=== PATIENT | female | born 1945 | race Caucasian/White ===

== ENCOUNTER 2017-02-05 11:30 | Emergency (ER) | payer OTHER ==
[2017-02-05 11:33] VITALS: BMI 30.2
[2017-02-05 11:43] VITALS: TEMP 97.6
[2017-02-05] MEDS ORDERED: Sodium Chloride 0.9% 500 ML IV STA (11:48)
--- NOTE | 2017-02-05 11:52 | ED PDOC ---
Arrival/HPI - General Chief Complaint: Female Genitourinary Time Seen by Provider: 02/05/17 11:35 Historian: Family (Daughter) - History of Present Illness Narrative History of Present Illness (Text): 02/05/17 11:49 A 71 year old female, whose past medical history includes asthma, Parkinson's disease and complete hysterectomy, presents to the emergency department complaining of left sided pelvic/abdominal pain for 2 days. History obtained through daughter who translated for patient. Patient denies any fever, chills, nausea, vomiting, diarrhea, urinary symptoms, vaginal bleeding, vaginal discharge, hematochezia, chest pain, shortness of breath or any other complaints. PMD: Dr. Gladys Mar Time/Duration: Other (2 days) Symptom Course: Unchanged Quality: Other Context: Home Past Medical History - Provider Review Nursing Documentation Reviewed: Yes - Infectious Disease Hx of Infectious Diseases: None - Cardiac Hx Cardiac Disorders: Yes Hx Hypertension: Yes - Pulmonary Hx Respiratory Disorders: Yes Hx Asthma: Yes - Neurological Hx Neurological Disorder: Yes Hx Parkinson's Disease: Yes - HEENT Hx HEENT Disorder: No - Renal Hx Renal Disorder: No - Endocrine/Metabolic Hx Endocrine Disorders: No - Hematological/Oncological Hx Blood Disorders: No - Integumentary Hx Dermatological Disorder: No - Musculoskeletal/Rheumatological Hx Musculoskeletal Disorders: Yes Hx Unsteady Gait: Yes - Gastrointestinal Hx Gastrointestinal Disorders: No - Genitourinary/Gynecological Hx Genitourinary Disorders: No - Psychiatric Hx Psychophysiologic Disorder: No Hx Substance Use: No - Surgical History Hx Hysterectomy: Yes - Anesthesia Hx Anesthesia: Yes Hx Anesthesia Reactions: No Family/Social History - Physician Review Nursing Documentation Reviewed: Yes Family/Social History: No Known Family HX Smoking Status: Never Smoked Hx Alcohol Use: No Hx Substance Use: No Allergies/Home Meds Allergies/Adverse Reactions: Allergies No Known Allergies Allergy (Verified 02/05/17 11:32) Home Medications: Home Meds Medication Instructions Recorded Confirmed Bisoprolol Fumarate [Bisoprolol 2.5 mg PO DAILY 02/05/17 02/05/17 Fumarate] Fluticasone/Salmeterol 250/50 1 puff IH DAILY 02/05/17 02/05/17 [Advair Diskus 250/50] Montelukast [Singulair] 10 mg PO HS 12/29/17 12/29/17 Pramipexole Di-HCl [Pramipexole 1 tab PO DAILY 02/05/17 02/05/17 Dihydrochloride] clonazePAM [Klonopin] 0.5 mg PO HS 02/05/17 02/05/17 Review of Systems - Physician Review All systems were reviewed & negative as marked: Yes - Review of Systems Constitutional: absent: Fevers, Night Sweats Respiratory: absent: SOB Cardiovascular: absent: Chest Pain Gastrointestinal: Other (Left sided pelvic pain). absent: Diarrhea, Nausea, Vomiting, Hematochezia Genitourinary Female: absent: Dysuria, Frequency, Hematuria, Urine Output Changes, Vaginal Bleeding, Vaginal Discharge Physical Exam Vital Signs Reviewed: Yes Vital Signs Temp Pulse Resp BP Pulse Ox 02/05/17 13:08 75 17 121/80 98 02/05/17 11:42 97.6 F 02/05/17 11:38 78 18 117/76 100 Temperature: Afebrile Blood Pressure: Normal Pulse: Regular Respiratory Rate: Normal Appearance: Positive for: Well-Appearing, Non-Toxic, Comfortable Pain Distress: None Mental Status: Positive for: Alert and Oriented X 3 - Systems Exam Head: Present: Atraumatic, Normocephalic Pupils: Present: PERRL Extroacular Muscles: Present: EOMI Conjunctiva: Present: Normal Mouth: Present: Moist Mucous Membranes Neck: Present: Normal Range of Motion Respiratory/Chest: Present: Clear to Auscultation, Good Air Exchange. No: Respiratory Distress, Accessory Muscle Use Cardiovascular: Present: Regular Rate and Rhythm, Normal S1, S2. No: Murmurs Abdomen: Present: Tenderness (LLQ tenderness to palpation), Normal Bowel Sounds. No: Distention, Peritoneal Signs Back: Present: Normal Inspection Upper Extremity: Present: Normal Inspection. No: Cyanosis, Edema Lower Extremity: Present: Normal Inspection. No: Edema Neurological: Present: GCS=15, CN II-XII Intact, Speech Normal Skin: Present: Warm, Dry, Normal Color. No: Rashes Psychiatric: Present: Alert, Oriented x 3, Normal Insight, Normal Concentration Medical Decision Making ED Course and Treatment: 02/05/17 11:49 Impression: A 71 year old female with left sided pelvic pain Plan: -- Abdominal CT -- Labs -- Urine culture and Urinalysis -- Tylenol and IV fluids -- Reassess and disposition Progress Notes: Report Date : 02/05/2017 13:27:46 PROCEDURE: CT Abdomen and Pelvis with contrast Dictator : Moshe Gooden MD IMPRESSION: Unremarkable contrast enhanced CT of the abdomen and pelvis. 02/05/17 13:33 pt reassesed: states pain improved. ct labs unremarkable. h/o of total hysterctomy. pt states feels well for dc return precautions advsed - Lab Interpretations Lab Results: 02/05/17 12:00 02/05/17 12:00 Lab Results 02/05/17 12:00: Sodium 141, Potassium 3.5 L, Chloride 102, Carbon Dioxide 26, Anion Gap 17, BUN 13, Creatinine 0.6 L, Est GFR ( Amer) > 60, Est GFR ( Non-Af Amer) > 60, Random Glucose 131 H, Calcium 9.7, Total Bilirubin 0.4, AST 26, ALT 30, Alkaline Phosphatase 112, Total Protein 8.8 H, Albumin 4.4, Globulin 4.4, Albumin/Globulin Ratio 1.0 L, Lipase 141 02/05/17 12:00: Urine Color Yellow, Urine Appearance Clear, Urine pH 6.0, Ur Specific [place] 1.015, Urine Protein Negative, Urine Glucose (UA) Negative, Urine Ketones Negative, Urine Blood Small H, Urine Nitrate Negative, Urine Bilirubin Negative, Urine Urobilinogen 0.2, Ur Leukocyte Esterase Trace H, Urine RBC 5 - 10, Urine WBC 2 - 5, Ur Epithelial Cells 6 - 8, Amorphous Sediment Few, Urine Bacteria Many, Urine Other Uyeast 02/05/17 12:00: PT 12.3, INR 1.12 H, APTT 30.1 02/05/17 12:00: WBC 8.6, RBC 4.15, Hgb 12.4, Hct 36.4, MCV 87.7, MCH 29.9, MCHC 34.1, RDW 13.0, Plt Count 376, MPV 8.4, Gran % 59.7, Lymph % (Auto) 32.2, [place] % (Auto) 4.3, Eos % (Auto) 3.6, Baso % (Auto) 0.2, Gran # 5.12, Lymph # 2.8, [place] # 0.4, Eos # 0.3, Baso # 0.02 I have reviewed the lab results: Yes - RAD Interpretation Radiology Orders: 02/05/17 12:28 ABD & PELVIS IV CONTRAST ONLY [CT] Stat - Medication Orders Current Medication Orders: Discontinued Medications Acetaminophen (Tylenol 325mg Tab) 975 mg PO STAT STA Stop: 02/05/17 11:49 Last Admin: 02/05/17 12:06 Dose: 975 mg MAR Pain/Vitals Document 02/05/17 12:06 MS (Rec: 02/05/17 12:08 MS [id number]) Pain Reassessment Is This A Pain ReAssessment? No Sleep Is patient sleeping during reassessment? No Presence of Pain Presence of Pain Yes Pain Scale Used Pain Scale Used Numeric Location Upper or Lower Lower Pain Location Body Site Abdomen Description Intermittent Intensity 6 Scale Used Numeric Pain Behavior Moaning Guarding Facial Grimacing Sodium Chloride (Sodium Chloride 0.9%) 500 mls @ 999 mls/hr IV .Q31M STA Stop: 02/05/17 12:18 Last Admin: 02/05/17 12:08 Dose: 999 mls/hr eMAR Start Stop Document 02/05/17 12:08 MS (Rec: 02/05/17 12:08 MS [id number]) Intravenous Solution Start Date 02/05/17 Start Time 12:08 End Date 02/05/17 End time 13:08 Total Infusion Time 60 - Scribe Statement The provider has reviewed the documentation as recorded by the Scott Joel Provider Scribe Attestation: All medical record entries made by the Scribe were at my direction and personally dictated by me. I have reviewed the chart and agree that the record accurately reflects my personal performance of the history, physical exam, medical decision making, and the department course for this patient. I have also personally directed, reviewed, and agree with the discharge instructions and disposition. Disposition/Present on Arrival - Present on Arrival Any Indicators Present on Arrival: No History of DVT/PE: No History of Uncontrolled Diabetes: No Urinary Catheter: No History of Decub. Ulcer: No History Surgical Site Infection Following: None - Disposition Have Diagnosis and Disposition been Completed?: Yes Diagnosis: Abdominal pain Disposition: HOME/ ROUTINE Disposition Time: 13:34 Patient Problems: Current Active Problems Problem Status Onset Abdominal pain Acute Condition: STABLE Discharge Instructions (ExitCare): Acute Abdominal Pain (ED), Pelvic Pain (ED) Additional Instructions: please follow up with your doctor/specialist. you may need further diagnostic testing. return to er with any worsening symptoms or concerns. Referrals: Kimmy Mar MD [Primary Care Provider] - Follow up with primary Guy Melendez DO [Staff Provider] - Follow up with primary Francisco Harris MD [Staff Provider] - Follow up with primary [facility] [place] [Outside] - Follow up with primary [facility] [Outside] - Follow up with primary Forms: [employer] (Chinese)
[2017-02-05 12:18] LABS: BASO # 0.02 K/mm3 (0.0-2.0); BASO % 0.2 % (0.0-3.0); EOS # 0.3 (0.0-0.7); EOS % 3.6 % (1.5-5.0); GRAN # 5.12 (1.4-6.5); GRAN % 59.7 % (50.0-68.0); HEMOGLOBIN 12.4 g/dL (12.0-16.0); LYMPH # 2.8 (1.2-3.4); LYMPH % 32.2 % (22.0-35.0); MEAN CELL VOLUME 87.7 fl (80.0-105.0); MEAN CORPUSCULAR HEMOGLOBIN 29.9 pg (25.0-35.0); MEAN CORPUSCULAR HGB CONC 34.1 g/dl (31.0-37.0); MEAN PLATELET VOLUME 8.4 fl (7.0-11.0); MONO # 0.4 (0.1-0.6); MONO % 4.3 % (1.0-6.0); RBC 4.15 10^6/uL (3.5-6.1); WHITE BLOOD COUNT 8.6 10^3/ul (4.5-11.0)
[2017-02-05 12:24] LABS: URINE BILIRUBIN NEGATIVE (NEGATIVE); URINE BLOOD SMALL (NEGATIVE); URINE GLUCOSE (UA) NEGATIVE (NEGATIVE); URINE LEUKOCYTE ESTERASE TRACE Leu/uL (NEGATIVE); URINE NITRATE NEGATIVE (NEGATIVE); URINE PROTEIN NEGATIVE mg/dL (<30 mg/dL); URINE UROBILINOGEN 0.2 E.U./dL (<1 E.U./dL)
[2017-02-05 12:27] LABS: ALBUMIN 4.4 g/dL (3.0-4.8); ALT/SGPT 30 U/L (7-56); AST/SGOT 26 U/L (14-36); BLOOD UREA NITROGEN 13 mg/dL (7-21); CALCIUM 9.7 mg/dL (8.4-10.5); GFR AFRICAN-AMERICAN > 60; GFR NON-AFRICAN AMERICAN > 60; LIPASE 141 U/L (23-300)
[2017-02-05 12:28] LABS: URINE APPEARANCE CLEAR (CLEAR); URINE COLOR YELLOW (YELLOW)
[2017-02-05] MEDS ORDERED: Iohexol 350 MG/100 ML VIAL ONE (12:32)
[2017-02-05 12:42] LABS: INR 1.12 (0.93-1.08); PARTIAL THROMBOPLASTIN TIME 30.1 Seconds (25.1-36.5); PROTHROMBIN TIME 12.3 SECONDS (9.4-12.5)
[2017-02-05 12:48] LABS: URINE AMORPHOUS SEDIMENT FEW; URINE BACTERIA MANY (NEG)
[2017-02-05 13:21] VITALS: BP 121/80; PULSE 75; RESP 17; O2SAT 98
--- NOTE | 2017-02-05 13:29 | CT ---
PROCEDURE: CT Abdomen and Pelvis with contrast HISTORY: llq pain COMPARISON: None. TECHNIQUE: Contrast dose: 100 cc of Omni 350 Radiation dose: Total exam DLP = 418 mGy-cm. This CT exam was performed using one or more of the following dose reduction techniques: Automated exposure control, adjustment of the mA and/or kV according to patient size, and/or use of iterative reconstruction technique. FINDINGS: LOWER THORAX: Unremarkable. LIVER: Unremarkable. No gross lesion or ductal dilatation. GALLBLADDER AND BILE DUCTS: Gallbladder is unremarkable. The common duct is dilated measuring 10 mm. There is no obvious stone or obstructing mass. PANCREAS: Unremarkable. No gross lesion or ductal dilatation. SPLEEN: Unremarkable. ADRENALS: Unremarkable. No mass. KIDNEYS AND URETERS: Unremarkable. No hydronephrosis. No solid mass. VASCULATURE: Unremarkable. No aortic aneurysm. BOWEL: Unremarkable. No obstruction. No gross mural thickening. APPENDIX: Normal appendix. PERITONEUM: Unremarkable. No free fluid. No free air. LYMPH NODES: Unremarkable. No enlarged lymph nodes. BLADDER: Unremarkable. REPRODUCTIVE: Unremarkable. BONES: No acute fracture. OTHER FINDINGS: None. IMPRESSION: Unremarkable contrast enhanced CT of the abdomen and pelvis.
== END 2017-02-05 13:46 | disposition home or self-care (01) ==
LOC: ED 11:30 → MERGE 11:30 → ED 13:46
DX: R10.9 Unspecified abdominal pain (principal); I10 Essential (primary) hypertension
CPT/HCPCS: 74177; 80053; 81001; 83690; 85025; 85610; 85730; 87086; 96360; 99285; J7040; Q9967

== ENCOUNTER 2018-04-10 11:59 | Emergency (ER) | payer OTHER ==
[2018-04-10 12:00] VITALS: BMI 30.2
[2018-04-10 12:12] VITALS: BP 140/84; PULSE 92; RESP 18; TEMP 98.1; O2SAT 99
[2018-04-10] MEDS ORDERED: Tetracaine 0.5% Ophth 2 ML BOTTLE OD STA (12:28)
--- NOTE | 2018-04-10 12:34 | ED PDOC ---
Arrival/HPI - General Chief Complaint: Eye Problem Time Seen by Provider: 04/10/18 12:18 Historian: Family (Daughter), Casing Man - History of Present Illness Time/Duration: Other (6 months) Symptom Onset: Gradual Symptom Course: Worsening Severity Level: Moderate Associated Symptoms (Text): 04/10/18 12:33 Patient had cataract surgery on her right eye 6 months ago at home in [facility]. Since that time the patient has had intermittent right eye redness pain swelling tearing and discharge. No visual disturbance. She has been seen in the emergency department and also by the patient access director several times for these complaints. At this morning the eye became red swollen with clear watery discharge. Past Medical History - Infectious Disease Hx of Infectious Diseases: None - Cardiac Hx Cardiac Disorders: Yes Hx Hypertension: Yes - Pulmonary Hx Respiratory Disorders: Yes Hx Asthma: Yes - Neurological Hx Neurological Disorder: Yes Hx Parkinson's Disease: Yes - HEENT Hx HEENT Disorder: No - Renal Hx Renal Disorder: No - Endocrine/Metabolic Hx Endocrine Disorders: No - Hematological/Oncological Hx Blood Disorders: No - Integumentary Hx Dermatological Disorder: No - Musculoskeletal/Rheumatological Hx Musculoskeletal Disorders: Yes Hx Unsteady Gait: Yes - Gastrointestinal Hx Gastrointestinal Disorders: No - Genitourinary/Gynecological Hx Genitourinary Disorders: No - Psychiatric Hx Psychophysiologic Disorder: No Hx Substance Use: No - Surgical History Hx Cataract Extraction: Yes Hx Hysterectomy: Yes - Anesthesia Hx Anesthesia: Yes Hx Anesthesia Reactions: No Family/Social History - Physician Review Nursing Documentation Reviewed: Yes Family/Social History: Unknown Family HX Smoking Status: Never Smoked Hx Alcohol Use: No Hx Substance Use: No Allergies/Home Meds Allergies/Adverse Reactions: Allergies No Known Allergies Allergy (Verified 04/10/18 12:12) Home Medications: Home Meds Medication Instructions Recorded Confirmed Bisoprolol Fumarate 2.5 mg PO DAILY 02/05/17 02/05/17 Fluticasone/Salmeterol 250/50 1 puff IH DAILY 02/05/17 02/05/17 [Advair Diskus 250/50] Montelukast [Singulair] 10 mg PO HS 02/05/17 02/05/17 Pramipexole Di-HCl [Pramipexole 1 tab PO DAILY 02/05/17 02/05/17 Dihydrochloride] clonazePAM [Klonopin] 0.5 mg PO HS 02/05/17 02/05/17 Review of Systems - Physician Review All systems were reviewed & negative as marked: Yes Physical Exam Vital Signs Temp Pulse Resp BP Pulse Ox 04/10/18 12:08 98.1 F 92 H 18 140/84 99 Temperature: Afebrile Blood Pressure: Normal Pulse: Regular Respiratory Rate: Normal Appearance: Positive for: Well-Appearing, Non-Toxic, Uncomfortable Pain Distress: Mild Mental Status: Positive for: other (Awake and alert) - Systems Exam Pupils: Present: PERRL Extroacular Muscles: Present: EOMI Conjunctiva: Present: Icteric, Other (Severe right eye conjunctival erythema and clear watery discharge. Tetracaine was instilled with marked improvement. Florasein staining is negative for abrasion.) Medical Decision Making - Medication Orders Current Medication Orders: Tetracaine HCl (Tetracaine 0.5% Ophth Soln) 2 drop OD STAT STA Stop: 04/10/18 12:29 Disposition/Present on Arrival - Present on Arrival Any Indicators Present on Arrival: No History of DVT/PE: No History of Uncontrolled Diabetes: No Urinary Catheter: No History of Decub. Ulcer: No History Surgical Site Infection Following: None - Disposition Have Diagnosis and Disposition been Completed?: Yes Diagnosis: Conjunctivitis Disposition: HOME/ ROUTINE Disposition Time: 12:52 Patient Plan: Discharge Condition: GOOD Discharge Instructions (ExitCare): Conjunctivitis ([place]), How to Use Eye Drops Additional Instructions: Must follow-up with your patient access director tomorrow. Follow-up in ER as needed. Prescriptions: Tobramycin [Tobrex] 5 ml OP Q4 #1 bryce Forms: [employer] (Wolof)
== END 2018-04-10 13:00 | disposition home or self-care (01) ==
LOC: ED 11:59
DX: H10.9 Unspecified conjunctivitis (principal)